=== PATIENT | male | born 1980 | race Caucasian/White ===

== ENCOUNTER 2018-11-22 19:40 | Emergency (ER) | payer OTHER ==
[2018-11-22 19:54] VITALS: BP 145/89
[2018-11-22 20:11] VITALS: TEMP 99.2
[2018-11-22] MEDS ORDERED: IPRATROPIUM-ALBUTEROL 3 ML NEB INHALATION STA (20:29)
[2018-11-22] MEDS ORDERED: methylPREDNISolone SOD SUCCI 125 MG/2 ML VIAL IM STA (20:29)
--- NOTE | 2018-11-22 20:32 | ED ---
URI HPI - General Chief Complaint: Upper Respiratory Infection Stated Complaint: CAMILLE Time Seen by Provider: 11/22/18 20:14 Source: patient, family Mode of arrival: ambulatory Limitations: no limitations - History of Present Illness Initial Comments: Patient is a 38-year-old male presenting for one-week duration of cough. He states that he has not had any fevers or chills or productive cough. He denies any chest pain or shortness breath and states that he has not had any nausea/ vomiting/diarrhea. However, he cannot stop coughing and does admit to smoking. - Related Data Home Medications Medication Instructions Recorded Confirmed Omeprazole 20 mg PO DAILY PRN 07/28/18 11/22/18 Previous Rx's Medication Instructions Recorded Azithromycin [Zithromax] 0 mg PO DIRECTED #6 tab 11/22/18 predniSONE 50 mg PO DAILY #5 tablet 11/22/18 Allergies Allergy/AdvReac Type Severity Reaction Status Date / Time codeine phosphate AdvReac Nausea & Verified 11/22/18 20:00 [From Tylenol-Codeine #3] Vomiting & Diarrhea Review of Systems ROS Statement: Those systems with pertinent positive or pertinent negative responses have been documented in the HPI. Constitutional: Negative for chills, fatigue and fever. HENT: Negative for congestion. Respiratory: Negative for chest tightness, positive for shortness of breath and wheezing. Positive for cough Cardiovascular: Negative for chest pain and palpitations. Gastrointestinal: Negative for abdominal pain. Negative for abdominal distention , diarrhea, nausea and vomiting. Genitourinary: Negative for dysuria. Musculoskeletal: Negative for back pain, neck pain and neck stiffness. Skin: Negative for color change. Neurological: Negative for dizziness, speech difficulty, weakness and light- headedness. Psychiatric/Behavioral: Negative for agitation and confusion. Negative for anxiety ROS Other: All systems not noted in ROS Statement are negative. Past Medical History Past Medical History: GERD/Reflux History of Any Multi-Drug Resistant Organisms: None Reported Past Surgical History: Ear Surgery Additional Past Surgical History / Comment(s): club foot repair, stick removal from eye. right fifth digit partial amputation Past Psychological History: No Psychological Hx Reported Smoking Status: Current every day smoker Past Alcohol Use History: None Reported Past Drug Use History: None Reported General Exam - General Exam Comments Initial Comments: Constitutional: Pt is oriented to person, place, and time. Pt appears well- developed and well-nourished. No distress. HENT: Head: Normocephalic and atraumatic. Eyes: EOM are normal. Neck: Normal range of motion. Neck supple. Cardiovascular: Normal rate, regular rhythm, S1 normal, S2 normal and normal heart sounds. Exam reveals no gallop and no friction rub. No murmur heard. Pulmonary/Chest: Effort normal and breath sounds normal. No tachypnea and no bradypnea. No respiratory distress. No wheezes or rales noted. Wheezes noted in all lung melchor. Patient is not tachypneic or displaying respiratory distress. Abdominal: Soft. Bowel sounds are normal. Pt exhibits no shifting dullness, no distension, no pulsatile liver, no fluid wave, no abdominal bruit and no ascites. There is no tenderness. There is no rigidity, no rebound, no guarding, no tenderness at McBurney's point and negative Alicea's sign. Musculoskeletal: Normal range of motion. Neurological: Pt is alert and oriented to person, place, and time. No cranial nerve deficit. Skin: Skin is warm and dry. No rash noted. Pt is not diaphoretic. No erythema. No pallor. Psychiatric: Pt has a normal mood and affect. Pt behavior is normal. Thought content normal. Limitations: no limitations Course Vital Signs 11/22/18 11/22/18 11/22/18 19:50 20:11 20:12 Temperature 98.8 F 99.2 F Pulse Rate 113 H Respiratory 26 H 20 Rate Blood Pressure 145/89 O2 Sat by Pulse 94 L Oximetry 11/22/18 11/22/18 20:50 20:57 Temperature Pulse Rate 60 62 Respiratory 16 16 Rate Blood Pressure O2 Sat by Pulse Oximetry Medical Decision Making - Medical Decision Making Chest x-ray showed no evidence of acute pathology and because there was wheezing noted on physical exam, patient was given breathing treatment and stated that symptoms significantly improved. Additionally, influenza swab was noted to be negative. Based on these findings, patient was given steroids shifting as well as steroid IM injection. Additionally, he was given azithromycin as he has a smoking history and he may have underlying lung disease such as COPD. Patient was advised to follow up with PCP in next 1-2 days and he was agreeable to this. Heart rate was also noted to be improved and noted to be in the mid 90s. Patient oxygen level remained in the mid 90s as well. - Lab Data Lab Results 11/22/18 Range/Units 20:50 Influenza Type A RNA Not Detected (Not Detectd) Influenza Type B (PCR) Not Detected (Not Detectd) Disposition Clinical Impression: Bronchitis Disposition: HOME SELF-CARE Condition: Good Instructions: Acute Bronchitis (ED) Prescriptions: Azithromycin [Zithromax] 0 mg PO DIRECTED #6 tab predniSONE 50 mg PO DAILY #5 tablet Is patient prescribed a controlled substance at d/c from ED?: No Referrals: None,Stated [Primary Care Provider] - 1-2 days Time of Disposition: 22:35
[2018-11-22 20:53] VITALS: RESP 16
[2018-11-22 20:58] VITALS: PULSE 62
--- NOTE | 2018-11-22 22:15 | XR ---
EXAMINATION TYPE: XR chest 2V DATE OF EXAM: 11/22/2018 COMPARISON: NONE HISTORY: Cough TECHNIQUE: Frontal and lateral views of the chest are obtained. FINDINGS: Heart and mediastinum are normal. There is blunting of left costophrenic angle posteriorly on the lateral view. There is small linear density in the left lower lobe. Right lung is clear. Bony thorax is intact. IMPRESSION: There is some pleural reaction and fluid at the left lung base. Normal heart.
== END 2018-11-22 22:42 | disposition home or self-care (01) ==
LOC: EC 19:40
DX: J40 Bronchitis, not specified as acute or chronic (principal); F17.200 Nicotine dependence, unspecified, uncomplicated; Z88.5 Allergy status to narcotic agent
CPT/HCPCS: 94640; 87502; 71046; 99285; 96372; J2930

== ENCOUNTER 2019-07-30 14:33 | Emergency (ER) | payer OTHER ==
[2019-07-30] MEDS ORDERED: SODIUM CHLORIDE 0.9% 500 ML 500 ML IV STA (15:11)
[2019-07-30] MEDS ORDERED: LORazepam 1 MG TAB PO STA (15:12)
--- NOTE | 2019-07-30 15:23 | ED ---
General Adult HPI - General Chief complaint: Nausea/Vomiting/Diarrhea Stated complaint: Nausea, vomiting, high heart rate, anxiety Time Seen by Provider: 07/30/19 14:53 Source: patient, RN notes reviewed, old records reviewed Mode of arrival: ambulatory Limitations: no limitations - History of Present Illness Initial comments: 38-year-old male patient with past history of anxiety presents to ED with chief complaint of 3 days of anxiety, nausea and vomiting. Patient reports that approximately 3 years ago he had similar symptoms also resolved anxiety. Patient denies any pain anywhere. Patient has any suicidal or homicidal ideation. Patient has an chest pain or shortness of breath. Systemic: Pt denies fatigue, fever/chills, rash. Pt denies weakness, night sweats, weight loss. Neuro: Pt denies headache, visual disturbances, syncope or pre-syncope. HEENT: Pt denies ocular discharge or irritation, otalgia, rhinorrhea, pharyngitis or notable lymphadenopathy. Cardiopulmonary: Pt denies chest pain, SOB, heart palpitations, dyspnea on exertion. Abdominal/GI: Pt denies abdominal pain, diarrhea. : Pt denies dysuria, burning w/ urination, frequency/urgency. Denies new onset urinary or bowel incontinence. MSK: Pt denies myalgia, loss of strength or function in extremities. Neuro: Pt denies new onset weakness, paresthesias. - Related Data Home Medications Medication Instructions Recorded Confirmed Omeprazole 20 mg PO DAILY PRN 07/28/18 11/22/18 Previous Rx's Medication Instructions Recorded Azithromycin [Zithromax] 0 mg PO DIRECTED #6 tab 11/22/18 predniSONE 50 mg PO DAILY #5 tablet 11/22/18 Allergies Allergy/AdvReac Type Severity Reaction Status Date / Time codeine phosphate AdvReac Nausea & Verified 07/30/19 14:37 [From Tylenol-Codeine #3] Vomiting & Diarrhea Review of Systems ROS Statement: Those systems with pertinent positive or pertinent negative responses have been documented in the HPI. ROS Other: All systems not noted in ROS Statement are negative. Past Medical History Past Medical History: GERD/Reflux History of Any Multi-Drug Resistant Organisms: None Reported Past Surgical History: Ear Surgery Additional Past Surgical History / Comment(s): club foot repair, stick removal from eye. right fifth digit partial amputation Past Psychological History: No Psychological Hx Reported Smoking Status: Current every day smoker Past Alcohol Use History: None Reported Past Drug Use History: None Reported General Exam - General Exam Comments Initial Comments: Constitutional: NAD, AOX3, Pt has pleasant affect. HEENT: NC/AT, trachea midline, neck supple, no lymphadenopathy. Posterior pharynx non erythematous, without exudates. External ears appear normal, without discharge. Mucous membranes moist. Eyes PERRLA, EOM intact. There is no scleral icterus. No pallor noted. Cardiopulmonary: RRR, no murmurs, rubs or gallops, no JVD noted. Lungs CTAB in anterior and posterior melchor. No peripheral edema. Abdominal exam: Abdomen soft and non-distended. Abdomen non-tender to palpation in all 4 quadrants. Bowel sounds active in LLQ. No hepatosplenomegaly. No ecchymosis Neuro: CN II-XII grossly intact. No nuchal rigidity. No raccon eyes, no willoughby sign, no hemotympanum. No cervical spinal tenderness. MSK: No posterior calf tenderness bilaterally, homans sign negative bilaterally. Posterior tibialis and radial pulse +2 bilaterally. Sensation intact in upper and lower extremities. Full active ROM in upper and lower extremities, 5/5 stregnth. Limitations: no limitations Course Vital Signs 07/30/19 07/30/19 07/30/19 14:35 15:38 16:17 Temperature 98 F Pulse Rate 117 H 103 H 101 H Respiratory 20 Rate Blood Pressure 184/116 153/110 140/96 O2 Sat by Pulse 97 96 96 Oximetry Medical Decision Making - Medical Decision Making 38-year-old male patient with past history of anxiety presents to ED with chief complaint of 3 days of anxiety, nausea and vomiting. Patient reports that approximately 3 years ago he had similar symptoms also resolved anxiety. Patient denies any pain anywhere. Patient has any suicidal or homicidal ideation. Patient has an chest pain or shortness of breath. Patient vital signs stable, afebrile. Physical exam did not slightly keep pathology. Abdomen soft nontender to palpation. Laboratory investigations non-impressive. Patient feeling much better after anti-anxiolytic. Patient discharged with primary care follow-up. Precautions discussed. Case discussed with Dr. Ortiz. - Lab Data Result diagrams: 07/30/19 15:32 07/30/19 15:32 Lab Results 09/12/19 09/12/19 09/12/19 Range/Units 15:32 15:32 15:32 WBC 9.9 (3.8-10.6) k/uL RBC 5.50 (4.30-5.90) m/uL Hgb 16.8 (13.0-17.5) gm/dL Hct 51.6 (39.0-53.0) % MCV 93.9 (80.0-100.0) fL MCH 30.6 (25.0-35.0) pg MCHC 32.6 (31.0-37.0) g/dL RDW 12.7 (11.5-15.5) % Plt Count 222 (150-450) k/uL Neutrophils % 67 % Lymphocytes % 23 % Monocytes % 6 % Eosinophils % 2 % Basophils % 1 % Neutrophils # 6.6 (1.3-7.7) k/uL Lymphocytes # 2.2 (1.0-4.8) k/uL Monocytes # 0.6 (0-1.0) k/uL Eosinophils # 0.2 (0-0.7) k/uL Basophils # 0.1 (0-0.2) k/uL Sodium 140 (137-145) mmol/L Potassium 3.7 (3.5-5.1) mmol/L Chloride 103 (98-107) mmol/L Carbon Dioxide 26 (22-30) mmol/L Anion Gap 11 mmol/L BUN 15 (9-20) mg/dL Creatinine 0.66 (0.66-1.25) mg/dL Est GFR (CKD-EPI)AfAm >90 (>60 ml/min/1.73 sqM) Est GFR (CKD-EPI)NonAf >90 (>60 ml/min/1.73 sqM) Glucose 93 (74-99) mg/dL Plasma Lactic Acid Dominic 1.5 (0.7-2.0) mmol/L Calcium 9.5 (8.4-10.2) mg/dL Total Bilirubin 0.6 (0.2-1.3) mg/dL AST 99 H (17-59) U/L ALT 81 H (21-72) U/L Alkaline Phosphatase 88 (38-126) U/L Total Protein 7.6 (6.3-8.2) g/dL Albumin 4.5 (3.5-5.0) g/dL Lipase 79 (23-300) U/L Urine Color Urine Appearance (Clear) Urine pH (5.0-8.0) Ur Specific [place] (1.001-1.035) Urine Protein (Negative) Urine Glucose (UA) (Negative) Urine Ketones (Negative) Urine Blood (Negative) Urine Nitrite (Negative) Urine Bilirubin (Negative) Urine Urobilinogen (<2.0) mg/dL Ur Leukocyte Esterase (Negative) 07/30/19 Range/Units 15:32 WBC (3.8-10.6) k/uL RBC (4.30-5.90) m/uL Hgb (13.0-17.5) gm/dL Hct (39.0-53.0) % MCV (80.0-100.0) fL MCH (25.0-35.0) pg MCHC (31.0-37.0) g/dL RDW (11.5-15.5) % Plt Count (150-450) k/uL Neutrophils % % Lymphocytes % % Monocytes % % Eosinophils % % Basophils % % Neutrophils # (1.3-7.7) k/uL Lymphocytes # (1.0-4.8) k/uL Monocytes # (0-1.0) k/uL Eosinophils # (0-0.7) k/uL Basophils # (0-0.2) k/uL Sodium (137-145) mmol/L Potassium (3.5-5.1) mmol/L Chloride (98-107) mmol/L Carbon Dioxide (22-30) mmol/L Anion Gap mmol/L BUN (9-20) mg/dL Creatinine (0.66-1.25) mg/dL Est GFR (CKD-EPI)AfAm (>60 ml/min/1.73 sqM) Est GFR (CKD-EPI)NonAf (>60 ml/min/1.73 sqM) Glucose (74-99) mg/dL Plasma Lactic Acid Dominic (0.7-2.0) mmol/L Calcium (8.4-10.2) mg/dL Total Bilirubin (0.2-1.3) mg/dL AST (17-59) U/L ALT (21-72) U/L Alkaline Phosphatase (38-126) U/L Total Protein (6.3-8.2) g/dL Albumin (3.5-5.0) g/dL Lipase (23-300) U/L Urine Color Yellow Urine Appearance Clear (Clear) Urine pH 6.5 (5.0-8.0) Ur Specific [place] 1.024 (1.001-1.035) Urine Protein Trace H (Negative) Urine Glucose (UA) Negative (Negative) Urine Ketones Negative (Negative) Urine Blood Negative (Negative) Urine Nitrite Negative (Negative) Urine Bilirubin Negative (Negative) Urine Urobilinogen <2.0 (<2.0) mg/dL Ur Leukocyte Esterase Negative (Negative) Disposition Clinical Impression: Anxiety, Nausea and vomiting Disposition: HOME SELF-CARE Condition: Stable Instructions (If sedation given, give patient instructions): Acute Nausea and Vomiting (ED), Anxiety (ED) Additional Instructions: Patient to adhere to previously discussed treatment plan and will take medication(s) as directed. Patient to follow up with PCP in 1-2 days. Patient to return to ED if symptoms do not improve. Follow-up with primary care provider tomorrow, return to ER if condition worsens. Is patient prescribed a controlled substance at d/c from ED?: No Referrals: None,Stated [Primary Care Provider] - 1-2 days [facility] [NON-[facility] - 1-2 days
--- NOTE | 2019-07-30 15:54 | XR ---
EXAMINATION TYPE: XR chest 2V DATE OF EXAM: 07/30/2019 COMPARISON: Chest x-ray November 22, 2018. HISTORY: Chest and abdominal pain with nausea and vomiting TECHNIQUE: Frontal and lateral views of the chest are obtained. FINDINGS: There is persistent blunting posterior left costophrenic angle. 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 There is no new s uspicious focal air space opacity, pleural effusion, or pneumothorax seen. The cardiac silhouette si ze is within normal limits. The osseous structures are intact. IMPRESSION: Overall stable findings, no new acute pulmonary process is evident.
[2019-07-30 16:00] LABS: Basophils # (A) 0.1 k/uL (0-0.2); Basophils % (A) 1 %; Eosinophils # (A) 0.2 k/uL (0-0.7); Eosinophils % (A) 2 %; HCT 51.6 % (39.0-53.0); HGB 16.8 gm/dL (13.0-17.5); Lymphocytes # (A) 2.2 k/uL (1.0-4.8); Lymphocytes % (A) 23 %; MCH 30.6 pg (25.0-35.0); MCHC 32.6 g/dL (31.0-37.0); MCV 93.9 fL (80.0-100.0); Mean Platelet Volume 6.9; Monocytes # (A) 0.6 k/uL (0-1.0); Monocytes % (A) 6 %; Neutrophils # (A) 6.6 k/uL (1.3-7.7); Neutrophils % (A) 67 %; Platelet Count 222 k/uL (150-450); RDW 12.7 % (11.5-15.5); WBC 9.9 k/uL (3.8-10.6)
[2019-07-30 16:07] LABS: ALT 81 U/L (21-72); AST 99 U/L (17-59); African American GFR (CKD) >90 (>60 ml/min/1.73 sqM); Albumin 4.5 g/dL (3.5-5.0); Alkaline Phosphatase 88 U/L (38-126); Anion Gap 11 mmol/L; Blood Urea Nitrogen 15 mg/dL (9-20); Calcium 9.5 mg/dL (8.4-10.2); Carbon Dioxide 26 mmol/L (22-30); Chloride 103 mmol/L (98-107); Glucose 93 mg/dL (74-99); Potassium 3.7 mmol/L (3.5-5.1); Sodium 140 mmol/L (137-145); Total Bilirubin 0.6 mg/dL (0.2-1.3); Total Protein 7.6 g/dL (6.3-8.2)
[2019-07-30 16:14] LABS: Appearance,Urine Clear (Clear); Bilirubin,Urine Negative (Negative); Blood,Urine Negative (Negative); Color,Urine Yellow; Glucose,Urine (UA) Negative (Negative); Ketones,Urine Negative (Negative); Leukocyte Esterase,Urine Negative (Negative); Nitrite,Urine Negative (Negative); PH, Urine 6.5 (5.0-8.0); Protein,Urine Trace (Negative); Specific Gravity,Urine 1.024 (1.001-1.035); Urobilinogen,Urine <2.0 mg/dL (<2.0)
[2019-07-30 17:17] VITALS: BP 139/95; PULSE 102; RESP 18; TEMP 98.2
== END 2019-07-30 17:21 | disposition home or self-care (01) ==
LOC: EC 14:33
DX: F41.9 Anxiety disorder, unspecified (principal); F17.200 Nicotine dependence, unspecified, uncomplicated; Z88.5 Allergy status to narcotic agent
CPT/HCPCS: 36415; 71046; 80053; 81003; 83605; 83690; 85025; 96360; 96361; 99284

== ENCOUNTER 2022-11-19 17:45 | Emergency (ER) | payer BC ==
[2022-11-19 18:56] VITALS: TEMP 98.7
[2022-11-19] MEDS ORDERED: KETOROLAC 15 MG/ML 1 ML VIAL IM STA (20:47)
[2022-11-19] MEDS ORDERED: ACETAMINOPHEN TAB 325 MG TAB PO STA (20:51)
--- NOTE | 2022-11-19 20:51 | ED ---
Fall HPI - General Chief Complaint: Fall Stated Complaint: fall Time Seen by Provider: 11/19/22 20:41 Source: patient, RN notes reviewed Mode of arrival: ambulatory - History of Present Illness Initial Comments: Nontoxic-appearing 42-year-old male that presents to the emergency room with complaints of falling down the stairs this morning around 10:00. Patient states he now has left foot pain. Abrasion to his left ankle and left side of his forehead. Denies any headaches. No loss of consciousness. He has been able to ambulate but increases his pain. He is a pack and a half a day smoker. History of surgery for clubfoot on the left. MD Complaint: fall -: hour(s) (10) Fall From: standing Fall Witnessed: no Place Fall Occurred: home Loss of Consciousness: none Prolonged Down Time?: no Symptoms Prior to Fall: none Severity scale (1-10): 6 Quality: dull Context: tripped/slipped - Related Data Home Medications Medication Instructions Recorded Confirmed Omeprazole 20 mg PO DAILY PRN 07/28/18 11/22/18 Previous Rx's Medication Instructions Recorded Azithromycin [Zithromax] 0 mg PO DIRECTED #6 tab 11/22/18 predniSONE 50 mg PO DAILY #5 tablet 11/22/18 Allergies Allergy/AdvReac Type Severity Reaction Status Date / Time codeine phosphate AdvReac Nausea & Verified 11/19/22 18:56 [From Tylenol-Codeine #3] Vomiting & Diarrhea Review of Systems ROS Statement: Those systems with pertinent positive or pertinent negative responses have been documented in the HPI. ROS Other: All systems not noted in ROS Statement are negative. Past Medical History Past Medical History: GERD/Reflux History of Any Multi-Drug Resistant Organisms: None Reported Past Surgical History: Ear Surgery Additional Past Surgical History / Comment(s): club foot repair, stick removal from eye. right fifth digit partial amputation Past Psychological History: No Psychological Hx Reported Smoking Status: Current every day smoker Past Alcohol Use History: Daily Past Drug Use History: None Reported General Exam Limitations: no limitations General appearance: alert, in no apparent distress Head exam: Present: normocephalic, other (Small abrasion left-sided forehead) Eye exam: Present: normal appearance, EOMI. Absent: scleral icterus, conjunctival injection, periorbital swelling, periorbital tenderness ENT exam: Present: mucous membranes moist, other (No evidence of bleeding) Neck exam: Present: full ROM. Absent: tenderness, meningismus, lymphadenopathy Respiratory exam: Absent: respiratory distress, accessory muscle use Cardiovascular Exam: Present: tachycardia Left Knee exam: Present: full ROM. Absent: tenderness Lower Leg exam: Present: full ROM. Absent: tenderness Ankle exam: Present: full ROM. Absent: tenderness, swelling, abrasion, laceration, ecchymosis, crepitus, dislocation Foot/Toe exam: Present: full ROM, tenderness, swelling, ecchymosis (Forefoot). Absent: abrasion, deformity, erythema, puncture wound, calcaneal tenderness, tenderness at base of 5th metatarsal Neurovascular tendon exam: Present: no vascular compromise. Absent: abnormal cap refill, extremity cold to touch, pallor Gait: antalgic Back exam: Absent: tenderness, paraspinal tenderness, vertebral tenderness Neurological exam: Present: alert, oriented X3 Psychiatric exam: Present: normal affect, normal mood Skin exam: Present: warm, dry, normal color. Absent: cyanosis, diaphoretic, petechiae, pallor Course Vital Signs 11/19/22 11/19/22 18:54 21:42 Temperature 98.7 F Pulse Rate 112 H 100 Respiratory 20 16 Rate Blood Pressure 167/103 131/98 O2 Sat by Pulse 99 96 Oximetry Medical Decision Making - Medical Decision Making Patient denies any loss of consciousness. Abrasion to forehead, no concern for intracranial process. No tenderness. No headaches. No focal neurological deficits. He was offered a CT and declined. Patient was given Toradol and Tylenol for pain X-ray interpreted by me negative for fracture, radiologist interpretation negative. There is some bruising to the forefoot, patient was placed in an ortho postop shoe, directed to follow up with primary care doctor this week. Rest ice and elevate. Case discussed with Dr. Arriaga Disposition Clinical Impression: Fall, Left foot pain Disposition: HOME SELF-CARE Condition: Good Instructions (If sedation given, give patient instructions): Foot Contusion (ED), Fall Prevention (ED) Additional Instructions: Tylenol and Motrin as needed for any pain or discomfort. Rest ice and elevate foot. Wear the orthopedic shoe as prescribed. Follow-up with the primary care doctor this week for reevaluation. Is patient prescribed a controlled substance at d/c from ED?: No Referrals: None,Stated [Primary Care Provider] - 1-2 days Time of Disposition: 21:35
--- NOTE | 2022-11-19 21:19 | XR ---
EXAMINATION TYPE: XR ankle complete LT DATE OF EXAM: 11/19/2022 COMPARISON: NONE HISTORY: Fell down the stairs TECHNIQUE: 3 views FINDINGS: There is intact ankle mortise. I see no fracture nor dislocation. IMPRESSION: No acute abnormality of the left ankle.
--- NOTE | 2022-11-19 21:20 | XR ---
EXAMINATION TYPE: XR foot complete LT DATE OF EXAM: 11/19/2022 COMPARISON: NONE HISTORY: Pain TECHNIQUE: 3 views FINDINGS: There is some pes planus. No fracture seen. Metatarsals are intact. The toes appear intact. IMPRESSION: Pes planus deformity. No fracture seen.
[2022-11-19 21:43] VITALS: BP 131/98; PULSE 100; RESP 16
== END 2022-11-19 21:42 | disposition home or self-care (01) ==
LOC: EC 17:45
DX: M79.672 Pain in left foot (principal); K21.9 Gastro-esophageal reflux disease without esophagitis; F17.200 Nicotine dependence, unspecified, uncomplicated; Z04.3 Encounter for examination and observation following other accident; Z79.899 Other long term (current) drug therapy; W10.9XXA Fall (on) (from) unspecified stairs and steps, initial encounter
CPT/HCPCS: 73610; 73630; 99284; 96372; J1885

== ENCOUNTER → 2024-12-04 | Outpatient (CLI) | payer BC ==
--- NOTE | 2024-12-04 11:06 | XR ---
EXAMINATION TYPE: XR chest 2V DATE OF EXAM: 12/04/2024 8:15 AM COMPARISON: None. CLINICAL INDICATION: Male, 44 years old with history of J18.9 PNEUMONIA, UNSPECIFIED ORGANISM, COPD TECHNIQUE: XR chest 2V view(s) obtained. FINDINGS: The heart size is normal. The pulmonary vasculature is normal. The lungs are clear. IMPRESSION: 1. No acute pulmonary process. [facility], Workstation: [facility], 12/04/2024 11:03 AM
== END | disposition home or self-care (01) ==
LOC: RADXRMAIN 08:02
PROVIDERS: ATTEND Family Medicine
DX: J44.9 Chronic obstructive pulmonary disease, unspecified (principal); J18.9 Pneumonia, unspecified organism
CPT/HCPCS: 71046